=== PATIENT | male | born 1945 | race Caucasian/White ===

== ENCOUNTER 2020-05-24 06:22 | Day surgery (SDC) | payer OTHER ==
[~2020-05-24] VITALS: Ht 165.1 cm; Wt 83.9 kg
[~2020-05-24 06:22] MED LIST: B-COMPLEX-VITA1 EACH PO; FUROSEMIDE 20 M20 M1 PO; LIPITOR 40 MG T40 M1 PO; LOW DOSE ASPIRI81 M1 PO; MAGNESIUM250 M1 PO; MULTIPLE VITAM1 EAC2 PO; NITROSTAT0.4 MG SUBLING; NORVASC5 MG PO; OMEGA-31000 M2 PO; POTASSIUM CHLO10 ME1 PO; RESTASIS1 EACH OPHTHALMIC; TAMSULOSIN HCL0.4 MG PO; TELMISARTAN80 MG PO; UBIQUINOL100 MG PO; VIAGRA25 MG PO; VITAMIN C + RO500 MG PO; VITAMIN D350 MCG PO
[2020-05-24 09:52] VITALS: BP 166/91
--- NOTE | 2020-05-28 06:16 | O ---
[facility] [place] [address] OPERATIVE REPORT Name: LINN ARIAS Room #: DEP [facility]..#: [id number] Admission: 05/24/20 Attend Phys: Mickey Wilson MD Discharge: 05/24/20 Date of : 43 Report #: [id number] THIS REPORT FOR: cc: Jonny Leiva James DO White,Mickey Rosa MD ~ DATE OF SERVICE: 05/24/2020 MEDICAL IMAGING DIRECTOR: None. PREOPERATIVE DIAGNOSIS: Unilateral left upper lid ptosis. POSTOPERATIVE DIAGNOSIS: Unilateral left upper lid ptosis. OPERATION PERFORMED: Unilateral left upper lid ptosis repair. ANESTHESIA: Local anesthesia with IV sedation. COMPLICATIONS: None. INDICATIONS FOR SURGERY: This patient has left upper lid ptosis with superior visual field loss. Visual field testing demonstrates dense superior visual defects. Retesting with the upper lid elevated shows an improvement in visual field loss of over 30% and in excess of 12 degrees. The current procedure is undertaken in order to improve the patient's visual function. Informed consent was obtained to include but not limited to the potential risks for bleeding, scarring, infection, loss of vision, failure to improve the problem, need for further surgery and need for adjustment of lid height. DESCRIPTION OF PROCEDURE: The patient was taken to the operating room, where a left upper lid crease was drawn with a skin marking pen. The incision was then made with Ariela scissors and dissected down to the orbital septum. Hemostasis was achieved with a monopolar cautery as it was throughout the case. The orbital septum was then entered and the preaponeurotic fat identified. The levator aponeurosis was then disinserted from the anterior surface of the tarsal plate and dissected free in the avascular Robison's muscle plane. The aponeurosis was then advanced onto the anterior surface of the tarsal plate and reattached with mattress double-arm 6-0 Novafil sutures, adjusting for height and contour. The redundant aponeurosis was then amputated. The upper lid crease was then reformed with interrupted 6-0 chromic sutures. The skin was closed with interrupted 6-0 plain gut suture. The wound was then cleaned and dressed with ophthalmic antibiotic ointment. [address] [address] OPERATIVE REPORT Name: JUANAMAXIMLINN NAEL Room #: DEP [facility].#: [id number] Admission: 05/24/20 Attend Phys: Mickey Wilson MD Discharge: 05/24/20 Date of : 43 Report #: [id number] The patient was then transported to the recovery area, having tolerated the procedure well with no anesthesia or operative complications being noted. <ELECTRONICALLY SIGNED> By: Mickey Wilson MD 05/28/20 0616 [id number] Mickey Wilson MD /nt
== END 2020-05-24 08:48 | disposition home or self-care (01) ==
LOC: OR 06:22 → TBA 06:23 → OR 08:48
PROVIDERS: ATTEND Ophthalmology
DX: H02.412 Mechanical ptosis of left eyelid (principal); I10 Essential (primary) hypertension; E78.5 Hyperlipidemia, unspecified; N40.0 Benign prostatic hyperplasia without lower urinary tract symptoms; Z98.890 Other specified postprocedural states; Z79.899 Other long term (current) drug therapy; Z95.1 Presence of aortocoronary bypass graft; Z79.01 Long term (current) use of anticoagulants; Z95.2 Presence of prosthetic heart valve
CPT/HCPCS: 50010; 50101; 50386; 50398; 51636; 56528; 56531; 62110; 62850; 70005